=== PATIENT | female | born 1960 | race Caucasian/White ===

== ENCOUNTER → 2025-01-08 09:32 | Outpatient (REF) | payer MEDICARE, BC, OTHER, SELFPAY | LOC: HWRAD 09:32 | PROVIDERS: ATTENDING PHYSICIAN Internal Medicine | DX: Z87.09 Personal history of other diseases of the respiratory system (principal) | CPT/HCPCS: 71046 ==

== ENCOUNTER → 2025-05-27 07:43 | Outpatient (REF) | payer MEDICARE, BC, OTHER, SELFPAY | LOC: HWWDC 07:43 | PROVIDERS: ATTENDING PHYSICIAN Internal Medicine | DX: Z12.31 Encounter for screening mammogram for malignant neoplasm of breast (principal) | CPT/HCPCS: 77063; 77067 ==